=== PATIENT | female | born 1995 | race Hispanic/Latino ===

== ENCOUNTER 2017-03-07 20:06 | Emergency (ER) | payer OTHER ==
[2017-03-07 20:11] VITALS: BMI 32.4
[2017-03-07 20:15] VITALS: TEMP 98.6
[2017-03-07] MEDS ORDERED: Amoxicillin-Clav 875-125 mg Tab PO STA (20:55)
[2017-03-07] MEDS ORDERED: Albuterol-Ipratrop 3 mg / 0.5 (3 ml) UD IH STA (20:56)
--- NOTE | 2017-03-07 21:03 | ED PDOC ---
Arrival/HPI - General Historian: Patient - General Chief Complaint: ENT Problem Time Seen by Provider: 03/07/17 20:33 - History of Present Illness Narrative History of Present Illness (Text): 03/07/17 21:03 21 y/o female, pmh including otitis media and tonsilitis, allergic to macrolides and fluoroquinolones, c/o cough/hoarsness voice and ear/throat pain x 2 days. Pt. stated that she has been coughing with the throat pain, voice is gone now, mild upper back pain as well, no dizziness, no palpitation, no rash, no night sweat, no dizziness, no numbness or tingling, no recent traveling for the past 4 weeks, no other medical or psychological complaints. (Clem Gonzales) Past Medical History - Provider Review Nursing Documentation Reviewed: Yes - Infectious Disease Hx of Infectious Diseases: None - Cardiac Hx Hypertension: Yes - Pulmonary Hx Asthma: Yes - Gastrointestinal Other/Comment: Liver tumor - Psychiatric Hx Substance Use: No - Surgical History Hx Orthopedic Surgery: Yes (R foot) Other/Comment: bone marrow extraction - Anesthesia Hx Anesthesia: Yes Hx Anesthesia Reactions: No Hx Malignant Hyperthermia: No Family/Social History - Physician Review Nursing Documentation Reviewed: Yes Family/Social History: Unknown Family HX Smoking Status: Never Smoked Hx Alcohol Use: Yes Frequency of alcohol use: Socially Hx Substance Use: No Allergies/Home Meds Allergies/Adverse Reactions: Allergies azithromycin [From Zithromax] Allergy (Verified 03/07/17 20:14) RASH ciprofloxacin [From Cipro] Allergy (Verified 03/07/17 20:14) ANAPHYLAXIS latex Allergy (Verified 03/07/17 20:18) RASH levofloxacin [From Levaquin] Allergy (Verified 03/07/17 20:14) RASH nut - unspecified Allergy (Verified 03/07/17 20:14) ANAPHYLAXIS povidone-iodine [From Betadine] Allergy (Verified 03/07/17 20:14) RASH shellfish derived Allergy (Verified 03/07/17 20:14) ANAPHYLAXIS soap [From Betadine] Allergy (Verified 03/07/17 20:14) RASH chlora-prep Allergy (Uncoded 03/07/17 20:14) ANAPHYLAXIS ct scan dye Allergy (Uncoded 03/07/17 20:14) RASH fruits Allergy (Uncoded 03/07/17 20:14) ANAPHYLAXIS vegetables Allergy (Uncoded 03/07/17 20:14) ANAPHYLAXIS Home Medications: Home Meds Medication Instructions Recorded Confirmed Pantoprazole Sodium [Protonix] 40 mg PO DAILY 03/07/17 03/07/17 Review of Systems - Review of Systems Constitutional: absent: Fatigue, Fevers Eyes: absent: Vision Changes ENT: Sore Throat, Other (ear pain). absent: Hearing Changes Respiratory: Cough. absent: SOB Cardiovascular: absent: Chest Pain Gastrointestinal: absent: Abdominal Pain, Diarrhea, Nausea, Vomiting Musculoskeletal: Back Pain, Myalgias. absent: Arthralgias, Neck Pain, Joint Swelling Skin: absent: Rash, Pruritis Neurological: absent: Headache, Dizziness, Focal Weakness, Gait Changes, Speech Changes, Facial Droop, Disequilibrium, Seizure Psychiatric: absent: Anxiety, Depression, Suicidal Ideation Physical Exam Vital Signs Reviewed: Yes Temperature: Afebrile Blood Pressure: Normal Pulse: Tachycardic Respiratory Rate: Normal Appearance: Positive for: Well-Appearing, Non-Toxic, Comfortable Pain Distress: Moderate Mental Status: Positive for: Alert and Oriented X 3 - Systems Exam Head: Present: Atraumatic, Normocephalic Pupils: Present: PERRL Extroacular Muscles: Present: EOMI Conjunctiva: Present: Normal Ears: Present: NORMAL TM, Normal Canal. No: Erythema Mouth: Present: Moist Mucous Membranes Pharnyx: Present: ERYTHEMA. No: EXUDATE, TONSILS ENLARGED, Peritonsilar Swelling, Uvular Deviation, Muffled/Hoarse Voice, Strider, Soft Palate/Uvular Edema Nose (Internal): Present: Normal Inspection, No Active Bleeding. No: Rhinorrhea , Septal Hematoma, Epistaxis Neck: Present: Normal Range of Motion, Trachea Midline. No: Meningeal Signs, MIDLINE TENDERNESS, Paraspinal Tenderness, Lymphadenopathy Respiratory/Chest: Present: Clear to Auscultation, Good Air Exchange, Rhonchi ( mild rhonchi). No: Respiratory Distress, Accessory Muscle Use, Wheezes, Decreased Breath Sounds, Rales, Retracting, Tachypneic, Tender to Palpation, Other Cardiovascular: Present: Regular Rate and Rhythm, Normal S1, S2. No: Murmurs Abdomen: Present: Normal Bowel Sounds. No: Tenderness, Distention, Peritoneal Signs Back: Present: Normal Inspection. No: CVA Tenderness, Midline Tenderness, Paraspinal Tenderness Upper Extremity: Present: Normal Inspection. No: Cyanosis, Edema Lower Extremity: Present: Normal Inspection. No: Edema Neurological: Present: GCS=15, Speech Normal, Motor Func Grossly Intact, Gait Normal, Memory Normal Skin: Present: Warm, Dry, Normal Color. No: Rashes Psychiatric: Present: Alert, Oriented x 3, Normal Insight, Normal Concentration Vital Signs Temp Pulse Resp BP Pulse Ox 03/07/17 21:31 97 H 18 130/86 100 03/07/17 20:15 98.6 F 105 H 18 132/90 100 Medical Decision Making - Lab Interpretations I have reviewed the lab results: Yes Interpretation: No clinic. lab abnormalty - RAD Interpretation Creative Services Director: Radiologist ED Course and Treatment: I was available for consultation during PA evaluation. The chart reviewed by me , and I agree with disposition. The documented history was done by the physician physical instructor. The documented physical exam was done by the physician physical instructor. The documented procedures were done by the physician physical instructor. (Jeremy Brito) 03/07/17 21:06 -Ddimer -toradol IM/prednisone/augmentin -chest x-ray -observe and reassess 03/07/17 22:34 -Chest xray show no active disease -dimer within normal limit -Voice return and pain resolved, feeling much better, will discharge home. Pt. is eating and drinking well. -Discharge home with augmentin, prednisone, motrin, stay hydrated, bed rest, salt water gargling, follow up with your own pmd and ENT within 2 days, return to the ER for any new or worsening signs or symptoms. (Clem Gonzales) - Lab Interpretations Lab Results: Lab Results 03/07/17 21:30: D-Dimer, Quantitative 0.19 - RAD Interpretation Radiology Orders: 03/07/17 20:33 CHEST PORTABLE [RAD] Stat MPRESSION: No acute findings. Thank you for allowing us to participate in the care of your patient. Dictated and Authenticated by: Ricki Jackson MD 03/07/2017 9:33 PM Eastern Time ([place] & [place]) (Clem Gonzales) - Medication Orders Current Medication Orders: Discontinued Medications Albuterol/Ipratropium (Duoneb 3 Mg/0.5 Mg (3 Ml) Ud) 3 ml IH STAT STA Stop: 03/07/17 20:57 Last Admin: 03/07/17 21:08 Dose: 3 ml Amoxicillin/Clavulanate Potassium (Augmentin 875 Mg-125 Mg Tab) 1 tab PO STAT STA PRN Reason: Protocol Stop: 03/07/17 20:56 Last Admin: 03/07/17 21:08 Dose: 1 tab Ketorolac Tromethamine (Toradol) 60 mg IM STAT STA Stop: 03/07/17 20:56 Last Admin: 03/07/17 21:08 Dose: 60 mg Prednisone (Prednisone Tab) 40 mg PO STAT STA Stop: 03/07/17 20:56 Last Admin: 03/07/17 21:08 Dose: 40 mg - 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 Disposition/Present on Arrival - Present on Arrival Any Indicators Present on Arrival: No History of DVT/PE: No History of Uncontrolled Diabetes: No Urinary Catheter: No History of Decub. Ulcer: No History Surgical Site Infection Following: None - Disposition Have Diagnosis and Disposition been Completed?: Yes Disposition Time: 22:36 Patient Plan: Discharge - Disposition Diagnosis: Pharyngitis, Laryngitis Disposition: HOME/ ROUTINE Condition: IMPROVED Additional Instructions: Discharge home with augmentin, prednisone, motrin, stay hydrated, bed rest, salt water gargling, follow up with your own pmd and ENT within 2 days, return to the ER for any new or worsening signs or symptoms. Prescriptions: Amoxicillin/Clavulanate [Augmentin 875 MG-125 MG] 1 tab PO BID #14 tab Ibuprofen [Motrin] 600 mg PO QID PRN #24 tab PRN Reason: Other predniSONE [Prednisone] 20 mg PO DAILY #4 tab Referrals: Mckay Stallings DO [Staff Provider] - Follow up with primary [facility] [place] [Outside] - Follow up with primary Forms: WORK NOTE, [facility] (Maltese)
[2017-03-07 23:01] VITALS: BP 128/85; PULSE 90; RESP 16; O2SAT 98
--- NOTE | 2017-03-08 09:59 | RAD ---
HISTORY: upper back pain COMPARISON: No prior. FINDINGS: LUNGS: No active pulmonary disease. PLEURA: No significant pleural effusion identified, no pneumothorax apparent. CARDIOVASCULAR: Normal. OSSEOUS STRUCTURES: No significant abnormalities. VISUALIZED UPPER ABDOMEN: Normal. OTHER FINDINGS: None. IMPRESSION: No active disease.
== END 2017-03-07 23:02 | disposition home or self-care (01) ==
LOC: ED 20:06
DX: J02.9 Acute pharyngitis, unspecified (principal); J04.0 Acute laryngitis
CPT/HCPCS: 71010; 85378; 96372; 99283; J1885